=== PATIENT | female | born 1930 | race Caucasian/White ===

== ENCOUNTER 2022-02-03 11:57 | Observation (INO) | payer MEDICARE, BC ==
[2022-02-03] MEDS ORDERED: ASPIRIN 81 MG PO STA (12:24)
[2022-02-03] MEDS ORDERED: NITROGLYCERIN SL TABS 0.4 MG TAB SUBLINGUAL STA (12:24)
--- NOTE | 2022-02-03 12:27 | ED ---
General Adult HPI - General Chief complaint: Chest Pain Stated complaint: chest & back pain Time Seen by Provider: 02/03/22 12:17 Source: patient, family, RN notes reviewed Mode of arrival: wheelchair Limitations: no limitations - History of Present Illness Initial comments: Patient is a pleasant 89-year-old female presenting to the emergency department with concerns with chest discomfort. Onset of symptoms was close to 2 days ago. Discomfort is rated 5/10. There is discomfort in her back as well now. Discomfort feels like a burning. No change of symptoms with position changes. Patient at times had mild nausea. Patient denies dyspnea however did earlier state to the nurse that she had some mild dyspnea. No diaphoresis. No history of similar symptoms previously. - Related Data Allergies Allergy/AdvReac Type Severity Reaction Status Date / Time chocolate flavor AdvReac Unknown Verified 02/03/22 12:15 onion AdvReac Unknown Verified 02/03/22 12:15 orange AdvReac Unknown Verified 02/03/22 12:14 Review of Systems ROS Statement: Those systems with pertinent positive or pertinent negative responses have been documented in the HPI. ROS Other: All systems not noted in ROS Statement are negative. Constitutional: Denies: fever Eyes: Denies: eye pain ENT: Denies: ear pain Respiratory: Reports: as per HPI. Denies: cough Cardiovascular: Reports: as per HPI, chest pain Endocrine: Denies: fatigue Gastrointestinal: Denies: abdominal pain Genitourinary: Denies: dysuria Musculoskeletal: Reports: as per HPI Skin: Denies: rash Neurological: Denies: weakness Past Medical History Past Medical History: GERD/Reflux, Hyperlipidemia, Hypertension History of Any Multi-Drug Resistant Organisms: None Reported Past Surgical History: Appendectomy, Section, Hysterectomy, Orthopedic Surgery Past Psychological History: Anxiety Smoking Status: Never smoker Past Alcohol Use History: None Reported Past Drug Use History: None Reported General Exam Limitations: no limitations General appearance: alert, in no apparent distress Head exam: Present: normocephalic Eye exam: Present: normal appearance Neck exam: Present: normal inspection Respiratory exam: Present: normal lung sounds bilaterally. Absent: chest wall tenderness Cardiovascular Exam: Present: regular rate, normal rhythm Expanded Peripheral pulses: 2+: Radial (R), Radial (L), Posterior Tibialis (R), Posterior Tibialis (L) GI/Abdominal exam: Present: soft. Absent: distended, tenderness, guarding, rebound, rigid Extremities exam: Present: normal inspection. Absent: pedal edema, calf tenderness Neurological exam: Present: alert Psychiatric exam: Present: normal affect, normal mood Skin exam: Present: normal color Course Vital Signs 02/03/22 02/03/22 12:08 13:06 Temperature 97.8 F Pulse Rate 97 100 Respiratory 16 18 Rate Blood Pressure 140/76 122/66 O2 Sat by Pulse 96 93 L Oximetry EKG Findings - EKG Results: EKG: interpreted by ERMD (Left axis. Q waves in inferior and V3 V4.), sinus rhythm, normal ST/T Medical Decision Making - Medical Decision Making Patient reevaluated and does feel somewhat better with nitro glycerin. Case was discussed with Dr. ferrer, who will admit covering Dr. Simmons - Lab Data Result diagrams: 02/03/22 13:05 02/03/22 13:05 Lab Results 02/03/22 02/03/22 02/03/22 Range/Units 13:05 13:05 13:05 WBC 6.8 (3.8-10.6) k/uL RBC 4.03 (3.80-5.40) m/uL Hgb 13.1 (11.4-16.0) gm/dL Hct 38.4 (34.0-46.0) % MCV 95.1 (80.0-100.0) fL MCH 32.4 (25.0-35.0) pg MCHC 34.0 (31.0-37.0) g/dL RDW 12.7 (11.5-15.5) % Plt Count 198 (150-450) k/uL MPV 8.7 Neutrophils % 66 % Lymphocytes % 26 % Monocytes % 5 % Eosinophils % 1 % Basophils % 1 % Neutrophils # 4.5 (1.3-7.7) k/uL Lymphocytes # 1.8 (1.0-4.8) k/uL Monocytes # 0.3 (0-1.0) k/uL Eosinophils # 0.1 (0-0.7) k/uL Basophils # 0.0 (0-0.2) k/uL PT 11.0 (9.0-12.0) sec INR 1.0 (<1.2) APTT 22.5 (22.0-30.0) sec D-Dimer 0.68 H (<0.60) mg/L FEU Sodium 139 (137-145) mmol/L Potassium 4.1 (3.5-5.1) mmol/L Chloride 106 (98-107) mmol/L Carbon Dioxide 22 (22-30) mmol/L Anion Gap 11 mmol/L BUN 18 H (7-17) mg/dL Creatinine 0.88 (0.52-1.04) mg/dL Est GFR (CKD-EPI)AfAm 68 (>60 ml/min/1.73 sqM) Est GFR (CKD-EPI)NonAf 59 (>60 ml/min/1.73 sqM) Glucose 110 H (74-99) mg/dL Calcium 9.7 (8.4-10.2) mg/dL Magnesium 1.6 (1.6-2.3) mg/dL Total Bilirubin 0.7 (0.2-1.3) mg/dL AST 21 (14-36) U/L ALT 14 (4-34) U/L Alkaline Phosphatase 68 (38-126) U/L Troponin I (0.000-0.034) ng/mL Total Protein 6.8 (6.3-8.2) g/dL Albumin 4.4 (3.5-5.0) g/dL 02/03/22 Range/Units 13:05 WBC (3.8-10.6) k/uL RBC (3.80-5.40) m/uL Hgb (11.4-16.0) gm/dL Hct (34.0-46.0) % MCV (80.0-100.0) fL MCH (25.0-35.0) pg MCHC (31.0-37.0) g/dL RDW (11.5-15.5) % Plt Count (150-450) k/uL MPV Neutrophils % % Lymphocytes % % Monocytes % % Eosinophils % % Basophils % % Neutrophils # (1.3-7.7) k/uL Lymphocytes # (1.0-4.8) k/uL Monocytes # (0-1.0) k/uL Eosinophils # (0-0.7) k/uL Basophils # (0-0.2) k/uL PT (9.0-12.0) sec INR (<1.2) APTT (22.0-30.0) sec D-Dimer (<0.60) mg/L FEU Sodium (137-145) mmol/L Potassium (3.5-5.1) mmol/L Chloride (98-107) mmol/L Carbon Dioxide (22-30) mmol/L Anion Gap mmol/L BUN (7-17) mg/dL Creatinine (0.52-1.04) mg/dL Est GFR (CKD-EPI)AfAm (>60 ml/min/1.73 sqM) Est GFR (CKD-EPI)NonAf (>60 ml/min/1.73 sqM) Glucose (74-99) mg/dL Calcium (8.4-10.2) mg/dL Magnesium (1.6-2.3) mg/dL Total Bilirubin (0.2-1.3) mg/dL AST (14-36) U/L ALT (4-34) U/L Alkaline Phosphatase (38-126) U/L Troponin I <0.012 (0.000-0.034) ng/mL Total Protein (6.3-8.2) g/dL Albumin (3.5-5.0) g/dL - Radiology Data Interpreted by me: Two-view chest x-ray shows no acute process Disposition Clinical Impression: Chest pain Disposition: ADMITTED IP TO THIS HOSP Is patient prescribed a controlled substance at d/c from ED?: No Referrals: Anthony Christianson MD [Primary Care Provider] - 1-2 days Time of Disposition: 14:36
--- NOTE | 2022-02-03 12:57 | XR ---
EXAMINATION TYPE: XR chest 2V DATE OF EXAM: 02/03/2022 COMPARISON: NONE HISTORY: Chest pain. TECHNIQUE: Frontal and lateral views of the chest are obtained. FINDINGS: Slightly elevated left hemidiaphragm. There is no suspicious focal air space opacity, pleur al effusion, or pneumothorax seen. Cardiomegaly is present. Anterior fusion plate lower cervical spin e noted. IMPRESSION: Cardiomegaly without acute pulmonary process.
[2022-02-03 13:21] LABS: Basophils % (A) 1 %; Eosinophils # (A) 0.1 k/uL (0-0.7); Eosinophils % (A) 1 %; HCT 38.4 % (34.0-46.0); HGB 13.1 gm/dL (11.4-16.0); Lymphocytes # (A) 1.8 k/uL (1.0-4.8); Lymphocytes % (A) 26 %; MCH 32.4 pg (25.0-35.0); MCV 95.1 fL (80.0-100.0); Mean Platelet Volume 8.7; Monocytes # (A) 0.3 k/uL (0-1.0); Monocytes % (A) 5 %; Neutrophils # (A) 4.5 k/uL (1.3-7.7); Neutrophils % (A) 66 %; Platelet Count 198 k/uL (150-450); RBC 4.03 m/uL (3.80-5.40); RDW 12.7 % (11.5-15.5); WBC 6.8 k/uL (3.8-10.6)
[2022-02-03 13:34] LABS: Albumin 4.4 g/dL (3.5-5.0); Calcium 9.7 mg/dL (8.4-10.2); Magnesium 1.6 mg/dL (1.6-2.3); Partial Thromboplastin Time 22.5 sec (22.0-30.0); Potassium 4.1 mmol/L (3.5-5.1); Total Bilirubin 0.7 mg/dL (0.2-1.3); Total Protein 6.8 g/dL (6.3-8.2)
[2022-02-03] MEDS ORDERED: NITROGLYCERIN SL TABS 0.4 MG TAB SUBLINGUAL PRN (14:36)
[2022-02-03] MEDS ORDERED: NALOXONE 0.4 MG/ML 1 ML VIAL IV PRN (15:19)
--- NOTE | 2022-02-03 15:21 | P.HPIM ---
History of Present Illness H&P Date: 02/03/22 Chief Complaint: chest pain Patient is a 89-year-old female with history of GERD, dyslipidemia, anxiety, presenting with chest pain. Chest pain started about 2 days ago, 07/16, radiating to her back, feels like burning, associated with nausea. However she denies any diaphoresis, palpitations, lightheadedness, shortness of breath, cough, vomiting, abdominal pain, diarrhea, constipation, or urinary complaints. She denies any recent travel history or sick contacts. She denies any smoking, alcohol use, illicit drug use. In the, otherwise normal limits. Her laboratory workup was unremarkable. Troponin were negative. D-dimer mildly elevated, but normal when adjusted for age. Chest x-ray did not show any acute process. EKG shows normal sinus rhyt hm. Patient seen and examined at bedside. Pertinent positives and negatives as discussed in HPI, a complete review of systems was performed and all other systems are negative. Vital signs reviewed General: nontoxic, no distress, appears at stated age Derm: warm, dry, no rash noted Head: atraumatic, normocephalic, symmetric Eyes: EOMI, no lid lag, anicteric sclera, pupils equal round reactive to light ENT: Nose and ears atraumatic Neck: No thyromegaly, supple Mouth: no lip lesion, mucus membranes moist Cardiovascular: S1S2 reg, no murmur, no edema Lungs: clear to auscultation bilateral, no rhonchi, no rales, no wheeze, no accessory muscle use Abdominal: soft, nontender to palpation, no guarding, no appreciable organomegaly Ext: no gross muscle atrophy, muscle strength muscle strength 5 out of 5 in all 4 extremities, no contractures Neuro: CN II-XII grossly intact Psych: Alert, oriented, appropriate affect Assessment/Plan: Chest pain, r/o ACS - EKG - NSR - CXR wnls - Trop neg x1, continue to trend - telemetry - cardiology consult - continue ASA and statin Chronic medical conditions: Anxiety GERD HLD -continue home therapy The patient is admitted with an anticipated less than 2 midnight stay for evaluation of chest pain. Surrogate decision-maker: Daughter CODE STATUS: No Code DVT prophylaxis: Lovenox Anticipated discharge date: 02/[address]: Home A total of 47 minutes was spent on the care of this complex patient more than 50% of the time was spent in counseling and care coordination. Past Medical History Past Medical History: GERD/Reflux, Hyperlipidemia, Hypertension History of Any Multi-Drug Resistant Organisms: None Reported Past Surgical History: Appendectomy, Section, Hysterectomy, Orthopedic Surgery Past Psychological History: Anxiety Smoking Status: Never smoker Past Alcohol Use History: None Reported Past Drug Use History: None Reported Medications and Allergies Home Medications Medication Instructions Recorded Confirmed Type ALPRAZolam [Xanax] 0.25 mg PO HS@0000 02/03/22 02/03/22 History Acetaminophen Tab [Tylenol Tab] 500 mg PO BID@0000,1800 02/03/22 02/03/22 History Aspirin EC [Ecotrin Low Dose] 81 mg PO DAILY 02/03/22 02/03/22 History Escitalopram [Lexapro] 30 mg PO DAILY 02/03/22 02/03/22 History Ferrous Sulfate [Feosol] 325 mg PO Q48H 02/03/22 02/03/22 History Omeprazole [PriLOSEC] 20 mg PO DAILY 02/03/22 02/03/22 History Simvastatin [Zocor] 20 mg PO DAILY 02/03/22 02/03/22 History Allergies Allergy/AdvReac Type Severity Reaction Status Date / Time chocolate flavor AdvReac Migraines Verified 02/03/22 14:59 onion AdvReac Migraines Verified 02/03/22 14:59 orange AdvReac Migraines Verified 02/03/22 14:59 Physical Exam Vitals: Vital Signs Temp Pulse Resp BP Pulse Ox 02/03/22 14:57 94 18 128/73 95 02/03/22 13:06 100 18 122/66 93 L 02/03/22 12:08 97.8 F 97 16 140/76 96 Intake and Output 02/03/22 02/03/22 02/03/22 06:59 14:59 22:59 Other: Weight 76.204 kg Results CBC & Chem 7: 02/03/22 13:05 02/03/22 13:05 Labs: Abnormal Lab Results - Last 24 Hours (Table) 02/03/22 02/03/22 Range/Units 13:05 13:05 D-Dimer 0.68 H (<0.60) mg/L FEU BUN 18 H (7-17) mg/dL Glucose 110 H (74-99) mg/dL
[2022-02-03] MEDS: NITROGLYCERIN OINT 1 INCH/GM PACKET TOPICAL SCH ×2 (19:02→23:19)
[2022-02-03] MEDS: ACETAMINOPHEN TAB 500 MG TAB PO SCH ×2 (19:02→23:18)
[2022-02-04] MEDS ORDERED: ALPRAZolam 0.25 MG TAB PO SCH
[2022-02-04] MEDS: NITROGLYCERIN OINT 1 INCH/GM PACKET TOPICAL SCH (05:04)
[2022-02-04] MEDS ORDERED: ATORVASTATIN 10 MG TAB PO SCH (09:00)
[2022-02-04] MEDS ORDERED: ESCITALOPRAM 20 MG TAB PO SCH (09:00)
[2022-02-04] MEDS ORDERED: PANTOPRAZOLE 40 MG TABLET PO SCH (09:00)
[2022-02-04] MEDS ORDERED: METOPROLOL TARTRATE 12.5 MG TAB PO SCH (09:00)
[2022-02-04] MEDS ORDERED: ENOXAPARIN 40 MG/0.4 ML SYRINGE SQ SCH (09:00)
[2022-02-04] MEDS ORDERED: ASPIRIN 81 MG PO SCH (09:00)
[2022-02-04] MEDS ORDERED: ASPIRIN 325 MG TAB PO SCH (09:00)
[2022-02-04 09:18] LABS: Chol/HDL Ratio 4.27 Ratio; LDL Cholesterol,Calculated 79.8 mg/dL (0.0-131.0)
--- NOTE | 2022-02-04 11:58 | CA ---
Transthoracic Echo Report Name: Julisa Ventura Age: 89 Gender: F : 1930 Exam Date: 02/04/2022 10:03 Exam Location: [facility] Ht (in): 60 Wt (lb): 168 Ordering Physician: Sulema Lucero Attending/Referring Phys: Rattling Machine Tender Belem Grady, LANA Procedure CPT: Indications: chest pain, LV function Cardiac Hx: Technical Quality: Fair Contrast 1: N/A Total Dose (mL): Contrast 2: Total Dose (mL): MEASUREMENTS (Male / Female) Normal Values 2D ECHO LV Diastolic Diameter PLAX 4.4 cm 4.2 - 5.9 / 3.9 - 5.3 cm LV Systolic Diameter PLAX 3.0 cm IVS Diastolic Thickness 1.0 cm 0.6 - 1.0 / 0.6 - 0.9 cm LVPW Diastolic Thickness 1.3 cm 0.6 - 1.0 / 0.6 - 0.9 cm LV Relative Wall Thickness 0.5 RV Internal Dim ED PLAX 3.1 cm M-MODE Aortic Root Diameter MM 2.5 cm LA Systolic Diameter MM 3.1 cm LA Ao Ratio MM 1.2 AV Cusp Separation MM 2.0 cm DOPPLER MV Area PHT 2.6 cm??? Mitral E Point Velocity 62.3 cm/s Mitral A Point Velocity 112.0 cm/s Mitral E to A Ratio 0.6 MV Deceleration Time 288.9 ms FINDINGS Left Ventricle Moderately increased posterior wall thickness. Left ventricular ejection fraction is estimated at 55 %. Right Ventricle Normal right ventricular size and function. Right Atrium Normal right atrial size. Left Atrium Normal left atrial size. Mitral Valve Structurally normal mitral valve. Mild mitral regurgitation. Aortic Valve Trileaflet aortic valve. Aortic valve sclerosis. Tricuspid Valve Structurally normal tricuspid valve. Mild tricuspid regurgitation. Pulmonic Valve Pulmonic valve not well visualized. Pericardium Small pericardial effusion. Aorta Normal size aortic root and proximal ascending aorta. CONCLUSIONS Normal left ventricle systolic function with mild concentric LVH. Small pericardial effusion which is not affecting the performance of the right or left ventricle. Mild aortic valve sclerosis without restriction. Mild mitral and tricuspid regurgitation Previewed by: Dr. Emma Mejia MD (Electronically Signed) Final Date: 04 February 2022 11:57
[2022-02-04] MEDS ORDERED: FERROUS SULFATE 325 MG TAB PO SCH (12:30)
--- NOTE | 2022-02-04 13:11 | P.PN ---
Subjective Progress Note Date: 02/04/22 Principal diagnosis: CP Hospital Course: 89-year-old female with history of GERD, dyslipidemia, anxiety, presenting with chest pain. Vital signs have been stable. Her laboratory workup was unremarkable. Troponin were negative. D-dimer mildly elevated, but normal when adjusted for age. Chest x-ray did not show any acute process. EKG shows normal sinus rhythm. Cardiology consulted. Subjective: Patient seen and examined at bedside. No acute events overnight. She claims that her chest pain has improved. She denies any other complaints at the [facility] [place] [facility]. Pertinent positives and negatives as discussed above, a complete review of systems was performed and all other systems are negative. Vitals Signs Reviewed. General: nontoxic, no distress, appears at stated age Derm: warm, dry, no rash noted Head: atraumatic, normocephalic, symmetric Eyes: EOMI, no lid lag, anicteric sclera, pupils equal round reactive to light ENT: Nose and ears atraumatic Neck: No thyromegaly, supple Mouth: no lip lesion, mucus membranes moist Cardiovascular: S1S2 reg, no murmur, no edema Lungs: clear to auscultation bilateral, no rhonchi, no rales, no wheeze, no a ccessory muscle use Abdominal: soft, nontender to palpation, no guarding, no appreciable organomega ly Ext: no gross muscle atrophy, muscle strength muscle strength 5 out of 5 in all 4 extremities, no contractures Neuro: CN II-XII grossly intact Psych: Alert, oriented, appropriate affect Assessment and Plan: Chest pain, r/o ACS - EKG - NSR - CXR wnls - Trop neg - telemetry - cardiology consult - continue ASA and statin - echo - LVEF 55% Chronic medical conditions: Anxiety GERD HLD -continue home therapy DVT ppx: lovenox Code status: no code Anticipated discharge place: home Anticipated discharge time: tomorrow Objective - Vital Signs Vital signs: Vital Signs Temp 97.5 F L 02/04/22 06:48 Pulse 79 02/04/22 06:48 Resp 18 02/04/22 06:48 BP 133/67 02/04/22 06:48 Pulse Ox 97 02/04/22 01:54 FiO2 Intake & Output 02/03/22 02/04/22 02/04/22 18:59 06:59 18:59 Intake Total 750 Balance 750 Weight 76.204 kg Intake: Oral 750 - Labs CBC & Chem 7: 02/03/22 13:05 02/03/22 13:05 Labs: Abnormal Lab Results - Last 24 Hours (Table) 02/03/22 02/03/22 02/04/22 Range/Units 13:05 13:05 05:49 D-Dimer 0.68 H (<0.60) mg/L FEU BUN 18 H (7-17) mg/dL Glucose 110 H (74-99) mg/dL HDL Cholesterol 32.80 L (40.00-60.00) mg/dL
--- NOTE | 2022-02-04 15:36 | P.DS ---
Providers Date of admission: 02/03/22 14:36 Expected date of discharge: 02/04/22 Attending physician: Eryn Min DO Consults: 02/03/22 14:36 Consult Physician Urgent Consulting Provider: Maxim Bennett Consult Reason/Comments: cp Do you want consulting provider notified?: Yes Primary care physician: Anthony Christianson MD Hospital Course: Discharge Diagnosis: Chest pain Anxiety GERD Dyslipidemia Hospital Course: 89-year-old female with history of GERD, dyslipidemia, anxiety, presenting with chest pain. Vital signs have been stable. Her laboratory workup was unrem arkable. Troponin were negative. D-dimer mildly elevated, but normal when adjusted for age. Chest x-ray did not show any acute process. EKG shows normal sinus rhythm. Cardiology consulted. Echocardiogram showed normal LV systolic function with small pericardial effusion. ACS ruled out. Patient being discharged on aspirin, statin, and beta champ per cardiology. Patient seen and examined at bedside.[] Vital signs reviewed and stable. General: nontoxic, no distress, appears at stated age Derm: warm, dry, no rash noted Head: atraumatic, normocephalic, symmetric Eyes: EOMI, no lid lag, anicteric sclera, pupils equal round reactive to light ENT: Nose and ears atraumatic Neck: No thyromegaly, supple Mouth: no lip lesion, mucus membranes moist Cardiovascular: S1S2 reg, no murmur, no edema Lungs: clear to auscultation bilateral, no rhonchi, no rales, no wheeze, no accessory muscle use Abdominal: soft, nontender to palpation, no guarding, no appreciable organomegaly Ext: no gross muscle atrophy, muscle strength muscle strength 5 out of 5 in all 4 extremities, no contractures Neuro: CN II-XII grossly intact Psych: Alert, oriented, appropriate affect A total of 32 minutes of time were spent preparing this complex discharge summary. Patient was discharged on 02/04/22 at 14:04. Patient Condition at Discharge: Stable Plan - Discharge Summary New Discharge Prescriptions: New Metoprolol Tartrate [Lopressor] 12.5 mg PO BID #60 tab Continue Simvastatin [Zocor] 20 mg PO DAILY Ferrous Sulfate [Iron (65 MG Elemental)] 325 mg PO Q48H ALPRAZolam [Xanax] 0.25 mg PO HS@0000 Aspirin EC [Ecotrin Low Dose] 81 mg PO DAILY Acetaminophen Tab [Tylenol] 500 mg PO BID@0000,1800 Omeprazole [PriLOSEC] 20 mg PO DAILY Escitalopram [Lexapro] 30 mg PO DAILY Discharge Medication List ALPRAZolam [Xanax] 0.25 mg PO HS@0000 02/03/22 [History] Acetaminophen Tab [Tylenol] 500 mg PO BID@0000,1800 02/03/22 [History] Aspirin EC [Ecotrin Low Dose] 81 mg PO DAILY 02/03/22 [History] Escitalopram [Lexapro] 30 mg PO DAILY 02/03/22 [History] Ferrous Sulfate [Iron (65 MG Elemental)] 325 mg PO Q48H 02/03/22 [History] Omeprazole [PriLOSEC] 20 mg PO DAILY 02/03/22 [History] Simvastatin [Zocor] 20 mg PO DAILY 02/03/22 [History] Metoprolol Tartrate [Lopressor] 12.5 mg PO BID #60 tab 02/04/22 [Rx] Follow up Appointment(s)/Referral(s): Emma Mejia MD [STAFF PHYSICIAN] - 1 Week (Office will call with appointment time and date) Anthony Christianson MD [Primary Care Provider] - 1-2 days Patient Instructions/Handouts: Chest Pain (DC) Activity/Diet/Wound Care/Special Instructions: Please see your PCP and cardiology as soon as possible. Discharge Disposition: HOME SELF-CARE
[2022-02-04 15:44] VITALS: BP 112/57; PULSE 80; RESP 17; TEMP 98
--- NOTE | 2022-02-04 19:31 | CONS ---
CONSULTATION REASON FOR CONSULTATION: Chest pain and upper back pain. HISTORY OF PRESENT ILLNESS: This is an 89-year-old lady with a history of hyperlipidemia, degenerate joint disease, and also gastroesophageal reflux disease. She has some anemia, takes iron supplements, simvastatin, and 81 mg of aspirin. She sees Dr. Christianson in the outpatient setting, used to see Dr. Combs before. She came into the hospital with complaints of what seems to be discomfort in the upper back as well as anterior chest that lasted for 2 to 3 days, constant, and the discomfort seems worse when she changes position. There is some tenderness in the left paraspinal area medial to the left scapula. She has had nausea, but that has resolved. Pain seems very musculoskeletal. EKG and troponin levels do not suggest any myocardial ischemia. The patient is resting comfortably without symptoms. PAST MEDICAL HISTORY: Gastroesophageal reflux disease, hyperlipidemia, borderline hypertension, history of hysterectomy, orthopedic surgery, and appendectomy in the past. SOCIAL HISTORY: The patient is not a smoker. MEDICATIONS AT HOME: Include: 1. Simvastatin. 2. Aspirin. 3. Also, used to take some iron supplements and omeprazole. IMAGING STUDIES: EKG revealed a sinus mechanism with minor nonspecific ST changes and also inferior Q waves, which I believe are probably not significant. No acute findings. LABORATORY DATA: Reveal that 3 sets of troponins are normal. Her LDL cholesterol is 79. PHYSICAL EXAMINATION: VITAL SIGNS: Blood pressure is 128/70, pulse rate is 81 per minute and regular. HEENT: Unremarkable. Fundus was not examined by me. NECK: Supple. There is no JVD. I do not hear a carotid bruit. HEART: Reveals S1 and S2. There is a short systolic murmur at the left sternal border. LUNGS: Reveal bilateral decent air entry. ABDOMEN: Soft and nontender. EXTREMITIES: Lower extremities reveal diminished pulses. CENTRAL NERVOUS SYSTEM: Grossly within normal limits without any focal deficits. MUSCULOSKELETAL: There are tenderness and muscle spasm of the left paraspinal muscles between the scapula and the spine. IMPRESSION: 1. Atypical chest pain. 2. Cannot exclude coronary artery disease, but I do not believe her presentation suggests any acute myocardial ischemia. 3. Hyperlipidemia. 4. Borderline hypertension. RECOMMENDATIONS: I am recommending that we will do an echocardiogram to assess her LV function. I will also start her on a small dose of beta-champ, metoprolol tartrate 12.5 mg b.i.d., to empirically address if she has CAD. No other aggressive intervention is necessary. The patient can be discharged, and I will see her in the office in 2 weeks. I explained my thoughts in detail to the patient. Thank you very much for the consult. SUSANA / GOVIND: [id number] /
== END 2022-02-04 15:50 | disposition home or self-care (01) ==
LOC: EC 11:57 → 6NMEDSUR 14:36
PROVIDERS: ADMIT Internal Medicine; ATTEND Internal Medicine
DX: R07.89 Other chest pain (principal); K21.9 Gastro-esophageal reflux disease without esophagitis; E78.5 Hyperlipidemia, unspecified; F41.9 Anxiety disorder, unspecified; I11.9 Hypertensive heart disease without heart failure; I31.39 Other pericardial effusion (noninflammatory); I08.3 Combined rheumatic disorders of mitral, aortic and tricuspid valves; D64.9 Anemia, unspecified; Z90.710 Acquired absence of both cervix and uterus; Z79.82 Long term (current) use of aspirin; Z79.899 Other long term (current) drug therapy
CPT/HCPCS: 36415; 93005; 93306; 85379; 80061; 80053; 83735; 84484; 85025; 85610; 85730; 71046; G0378 ×2; J1650; 96372; 96374; 99285

== ENCOUNTER 2022-02-09 10:08 | Emergency (ER) | payer MEDICARE, BC ==
[2022-02-09 10:39] LABS: Basophils % (A) 1 %; Eosinophils # (A) 0.1 k/uL (0-0.7); Eosinophils % (A) 2 %; HCT 36.9 % (34.0-46.0); HGB 12.2 gm/dL (11.4-16.0); Lymphocytes # (A) 1.9 k/uL (1.0-4.8); Lymphocytes % (A) 31 %; MCH 31.7 pg (25.0-35.0); MCHC 33.2 g/dL (31.0-37.0); MCV 95.5 fL (80.0-100.0); Mean Platelet Volume 8.5; Monocytes # (A) 0.3 k/uL (0-1.0); Monocytes % (A) 5 %; Neutrophils # (A) 3.7 k/uL (1.3-7.7); Neutrophils % (A) 60 %; Platelet Count 200 k/uL (150-450); RBC 3.86 m/uL (3.80-5.40); RDW 12.7 % (11.5-15.5); WBC 6.2 k/uL (3.8-10.6)
[2022-02-09 10:43] LABS: Partial Thromboplastin Time 22.8 sec (22.0-30.0); Prothrombin Time 10.6 sec (9.0-12.0)
--- NOTE | 2022-02-09 10:44 | XR ---
EXAMINATION TYPE: XR chest 2V DATE OF EXAM: 02/09/2022 10:34 AM COMPARISON: Chest radiographs from 02/03/2022 TECHNIQUE: XR chest 2V Frontal and lateral views of the chest. CLINICAL INDICATION:Female, 89 years old with history of chest pain FINDINGS: Lungs/Pleura: There is flattening of the diaphragm with increased lucency of the lungs. No evidence o f pneumothorax, pleural effusion or focal consolidation. Pulmonary vascularity: Unremarkable. Heart/mediastinum: Cardiomediastinal silhouette is unremarkable. Musculoskeletal: No acute osseous pathology. There is fixation hardware in the lower cervical spine. IMPRESSION: 1. No significant change in patients examination. 2. COPD changes. 3. No evidence of rib fracture.
[2022-02-09 10:54] LABS: Albumin 4.3 g/dL (3.5-5.0); Calcium 9.3 mg/dL (8.4-10.2); Potassium 4.1 mmol/L (3.5-5.1); Total Bilirubin 0.7 mg/dL (0.2-1.3); Total Protein 6.9 g/dL (6.3-8.2)
--- NOTE | 2022-02-09 11:41 | ED ---
Chest Pain HPI - General Chief Complaint: Chest Pain Stated Complaint: Shoulder Pain Time Seen by Provider: 02/09/22 11:10 Source: patient, RN notes reviewed Mode of arrival: ambulatory Limitations: no limitations - History of Present Illness Initial Comments: This an 89-year-old female presents emergency Department with chief complaint of left-sided chest pain. Patient states she was admitted a few days ago and discharge. Patient states that she had return of pain today he noticed that there is a rash on her chest and back. Patient states that this pain is very similar to what she had before. It is worse if she touches the area or moves. Patient does feel short of breath no leg pain or leg swelling patient was started on metoprolol while she was in the hospital. Patient denies any headache dizziness no blurred vision no other associated symptoms. - Related Data Home Medications Medication Instructions Recorded Confirmed ALPRAZolam [Xanax] 0.25 mg PO HS@0000 02/03/22 02/03/22 Acetaminophen Tab [Tylenol] 500 mg PO BID@0000,1800 02/03/22 02/03/22 Aspirin EC [Ecotrin Low Dose] 81 mg PO DAILY 02/03/22 02/03/22 Escitalopram [Lexapro] 30 mg PO DAILY 02/03/22 02/03/22 Ferrous Sulfate [Iron (65 MG 325 mg PO Q48H 02/03/22 02/03/22 Elemental)] Omeprazole [PriLOSEC] 20 mg PO DAILY 02/03/22 02/03/22 Simvastatin [Zocor] 20 mg PO DAILY 02/03/22 02/03/22 Previous Rx's Medication Instructions Recorded Metoprolol Tartrate [Lopressor] 12.5 mg PO BID #60 tab 02/04/22 valACYclovir HCL [Valtrex] 1,000 mg PO TID #30 tablet 02/09/22 Allergies Allergy/AdvReac Type Severity Reaction Status Date / Time chocolate flavor AdvReac Migraines Verified 02/09/22 10:13 onion AdvReac Migraines Verified 02/09/22 10:13 orange AdvReac Migraines Verified 02/09/22 10:13 Review of Systems ROS Statement: Those systems with pertinent positive or pertinent negative responses have been documented in the HPI. ROS Other: All systems not noted in ROS Statement are negative. EKG Findings - EKG Comments: EKG Findings:: EKG performed at 10:17 sinus rhythm rate of 82 MA 152 QRS 78 QT status QTC 378/460 - EKG Results: EKG: interpreted by DURAN Past Medical History Past Medical History: GERD/Reflux, Hyperlipidemia, Hypertension History of Any Multi-Drug Resistant Organisms: None Reported Past Surgical History: Appendectomy, Section, Hysterectomy, Orthopedic Surgery Past Psychological History: Anxiety Smoking Status: Never smoker Past Alcohol Use History: None Reported Past Drug Use History: None Reported General Exam Limitations: no limitations General appearance: alert, in no apparent distress Head exam: Present: atraumatic, normocephalic, normal inspection Eye exam: Present: normal appearance, PERRL, EOMI. Absent: scleral icterus, c onjunctival injection, periorbital swelling ENT exam: Present: normal exam, mucous membranes moist Neck exam: Present: normal inspection, full ROM. Absent: tenderness, meningismus, lymphadenopathy Respiratory exam: Present: normal lung sounds bilaterally, chest wall tenderness, other (Is a vesicular erythematous rash on the left breast, left thoracic region). Absent: respiratory distress, wheezes, rales, rhonchi, stridor Cardiovascular Exam: Present: regular rate, normal rhythm, normal heart sounds. Absent: systolic murmur, diastolic murmur, rubs, gallop, clicks GI/Abdominal exam: Present: soft, normal bowel sounds. Absent: distended, tenderness, guarding, rebound, rigid Course Vital Signs 02/09/22 02/09/22 10:11 11:19 Temperature 97.8 F Pulse Rate 84 Pulse Rate [ 86 Pulse Oximetery ] Respiratory 22 Rate Blood Pressure 143/79 O2 Sat by Pulse 97 Oximetry Chest Pain MDM - MDM 89-year-old presented emergency department for left-sided chest pain patient has herpes zoster rash is consistent and pain. Patient will be discharged in stable condition patient had recent cardiac workup which was negative repeat labs today unremarkable. Disposition Clinical Impression: Herpes zoster Disposition: HOME SELF-CARE Condition: Stable Instructions (If sedation given, give patient instructions): Shingles (ED) Additional Instructions: Please return to the Emergency Department if symptoms worsen or any other concerns. Prescriptions: valACYclovir HCL [Valtrex] 1,000 mg PO TID #30 tablet Is patient prescribed a controlled substance at d/c from ED?: No Referrals: Anthony Christianson MD [Primary Care Provider] - 1-2 days Time of Disposition: 11:41
[2022-02-09 12:02] VITALS: BP 155/76; PULSE 78; RESP 16; TEMP 97.5
== END 2022-02-09 12:00 | disposition home or self-care (01) ==
LOC: EC 10:08
DX: B02.9 Zoster without complications (principal); K21.9 Gastro-esophageal reflux disease without esophagitis; E78.5 Hyperlipidemia, unspecified; I10 Essential (primary) hypertension; F41.9 Anxiety disorder, unspecified; Z91.018 Allergy to other foods; Z79.82 Long term (current) use of aspirin; Z79.899 Other long term (current) drug therapy
CPT/HCPCS: 36415; 71046; 80053; 84484; 85025; 85610; 85730; 99285

== ENCOUNTER → 2022-10-15 | Outpatient (CLI) | payer MEDICARE, BC | END | disposition home or self-care (01) | LOC: LABWHC1 15:52 | PROVIDERS: ATTEND Family Medicine | DX: D64.9 Anemia, unspecified (principal) | CPT/HCPCS: 36415; 82272 ==